=== PATIENT | female | born 1950 | race Caucasian/White ===

== ENCOUNTER 2020-02-22 18:44 | Emergency (ER) | payer OTHER, SELFPAY ==
[~2020-02-22] VITALS: Ht 162.6 cm; Wt 40.8 kg
[~2020-02-22 18:44] MED LIST: MOTRIN800 MG PO
[2020-02-22 18:46] VITALS: Ht 162.6 cm; Wt 40.8 kg
[2020-02-22 22:08] LABS: BASOPHIL % 0.6 % (0.2-1.3); PLATELET COUNT 150 x10^3mcL (179-408)
[2020-02-22 22:45] LABS: CALCIUM 8.5 mg/dL (8.5-10.1); CARBON DIOXIDE 22.8 mmol/L (21-32); CHLORIDE SERUM 107 mmol/L (98-107); CREATININE SERUM 2.1 mg/dL (0.6-1.0); GFR1 25 mL/min; GLUCOSE SERUM 131 mg/dL (74-106); POTASSIUM SERUM 3.8 mmol/L (3.5-5.1); SODIUM SERUM 144 mmol/L (136-145)
[2020-02-22 22:57] LABS: ALKALINE PHOSPHATASE 79 U/L (46-116); ALT/SGPT 19 U/L (14-59); AST/SGOT 25 U/L (15-37); BILIRUBIN TOTAL 0.9 mg/dL (0.20-1.00); LIPASE 97 IU/L (73-393); TOTAL PROTEIN, SERUM 7.1 g/dL (6.4-8.2)
[2020-02-22 22:58] LABS: ALBUMIN 3.3 g/dL (3.4-5.0)
[2020-02-23 04:54] VITALS: BP 101/56
== END 2020-02-23 04:54 | disposition home or self-care (01) ==
LOC: ED 18:44
PROVIDERS: Emergency Medicine
DX: U07.1 COVID-19 (principal); M79.7 Fibromyalgia; G43.909 Migraine, unspecified, not intractable, without status migrainosus; Z88.5 Allergy status to narcotic agent; Z88.6 Allergy status to analgesic agent
CPT/HCPCS: J1885; J2405; J7030; J7060; U0003